=== PATIENT | male | born 1985 | race Caucasian/White ===

== ENCOUNTER 2016-06-06 20:13 | Emergency (ER) | payer OTHER ==
[~2016-06-06] VITALS: Ht 182.9 cm; Wt 90.1 kg
[~2016-06-06 20:13] MED LIST: LIBRIUM25 MG PO
[2016-06-06 23:23] LABS: HEMATOCRIT 40.7 % (38.0-50.0); MCH 29.1 PG (29.0-34.0); MCHC 35.6 G/DL (30.0-36.0); MCV 81.6 FL (86-99); MEAN PLAT.VOLUME 10.3 uM^3 (9.0-12.4); PLATELET COUNT 268 K/uL (156-360); RBC DIS.WIDTH-CV 12.9 % (11.8-14.6); RBC DIS.WIDTH-SD 37.4 % (39-53); RED BLOOD COUNT 4.99 M/uL (4.00-5.50); WHITE BLOOD COUNT 6.4 K/uL (4.1-10.2)
[2016-06-06 23:35] LABS: CHLORIDE 108 mEq/L (99-109); POTASSIUM 4.2 mEq/L (3.7-5.4); SODIUM 143 mEq/L (136-147)
[2016-06-06 23:37] LABS: GLUCOSE 86 mg/dL (70-99)
[2016-06-06 23:38] LABS: ANION GAP 15 MEQ/L (2-14)
[2016-06-06 23:40] LABS: SERUM ETHYL ALCOHOL 204 mg/dL
[2016-06-06 23:41] LABS: GFR ESTIMATE (CALCULATED) > 59 mL/min/
[2016-06-06 23:42] LABS: UREA NITROGEN (BUN) 13 mg/dL (9-23)
[2016-06-07] MEDS ORDERED: LIBRIUM25 MG PO (05:24)
[2016-06-07] MEDS ORDERED: THIAMINE HCL100 MG PO (05:24)
[2016-06-07 06:17] VITALS: BP 117/85
== END 2016-06-07 06:31 | disposition home or self-care (01) ==
LOC: EME → EDBD 20:13 → EME 20:13
PROVIDERS: Emergency Medicine
DX: S50.01XA Contusion of right elbow, initial encounter (principal); W22.8XXA Striking against or struck by other objects, initial encounter; Y92.810 Car as the place of occurrence of the external cause; F10.239 Alcohol dependence with withdrawal, unspecified; F10.229 Alcohol dependence with intoxication, unspecified; F33.8 Other recurrent depressive disorders; Z63.0 Problems in relationship with spouse or partner; Y90.7 Blood alcohol level of 200-239 mg/100 ml; F17.200 Nicotine dependence, unspecified, uncomplicated
CPT/HCPCS: 73080; 80048; 81003; 85027; 90837; 99281; 99284; G0480

== ENCOUNTER 2017-01-18 17:00 | Inpatient (IN) | payer OTHER ==
[~2017-01-18] VITALS: Ht 182.9 cm; Wt 80.0 kg
[~2017-01-18 17:00] MED LIST changes: +THIAMINE HCL100 MG PO
[2017-01-18 18:46] LABS: ADD MEDTOX COMMENT Y; AMPHETAMINE NEGATIVE (500 ng/mL); BARBITURATES NEGATIVE (200 ng/mL); BENZODIAZEPINES NEGATIVE (150 ng/mL); COCAINE PRESUMPTIVE POSITIVE (150 ng/mL); INTERNAL CONTROLS VALID? YES; METHADONE NEGATIVE (200 ng/mL); METHAMPHETAMINE NEGATIVE (500 ng/mL); OPIATES (MORPHINE) NEGATIVE (100 ng/mL); OXYCODONE NEGATIVE (100 ng/mL); PHENCYCLIDINE NEGATIVE (25 ng/mL); PROPOXYPHENE NEGATIVE (300 ng/mL); THC CANNABINOIDS PRESUMPTIVE POSITIVE (50 ng/mL); TRICYCLIC ANTIDEPRESSANTS NEGATIVE (300 ng/mL)
[2017-01-18 18:50] LABS: EOSINOPHIL (%) 1.6 % (0-5); EOSINOPHIL COUNT 0.1 K/uL (0-0.3); HEMATOCRIT 46.1 % (38.0-50.0); IMMATURE GRANULOCYTE (%) 0.3 % (0.0-0.7); INSTRUMENT ABS NEUTROPHIL CT 3.8 K/uL; LYMPHOCYTE COUNT 1.9 K/uL (1.0-2.8); MCH 28.3 PG (29.0-34.0); MCHC 34.3 G/DL (30.0-36.0); MCV 82.5 FL (86-99); MEAN PLAT.VOLUME 9.5 uM^3 (9.0-12.4); MONOCYTE (%) 7.1 % (3-12); MONOCYTE COUNT 0.4 K/uL (0-0.8); NEUTROPHIL COUNT 3.8 K/uL (1.8-6.4); PLATELET COUNT 328 K/uL (156-360); RBC DIS.WIDTH-CV 12.3 % (11.8-14.6); RBC DIS.WIDTH-SD 37.3 % (39-53); RED BLOOD COUNT 5.59 M/uL (4.00-5.50); WHITE BLOOD COUNT 6.2 K/uL (4.1-10.2)
[2017-01-18 19:00] LABS: CHLORIDE 108 mEq/L (99-109); POTASSIUM 3.6 mEq/L (3.7-5.4); SODIUM 144 mEq/L (136-147)
[2017-01-18 19:02] LABS: GLUCOSE 141 mg/dL (70-99)
[2017-01-18 19:03] LABS: ANION GAP 11 MEQ/L (2-14)
[2017-01-18 19:04] LABS: TOTAL BILIRUBIN 0.6 mg/dL (0.0-1.0)
[2017-01-18 19:05] LABS: SERUM ETHYL ALCOHOL 267 mg/dL
[2017-01-18 19:06] LABS: ALKALINE PHOSPHATASE 91 IU/L (3-129); GFR ESTIMATE (CALCULATED) > 59 mL/min/
[2017-01-18 19:07] LABS: UREA NITROGEN (BUN) 10 mg/dL (9-23)
[2017-01-19] MEDS ORDERED: ZOLOFT50 MG PO (05:12)
[2017-01-19 05:25] VITALS: BP 141/90
[2017-01-19 07:51] VITALS: BP 141/85
[2017-01-19 13:26] VITALS: BP 138/95
[2017-01-19 15:44] VITALS: BP 134/85
[2017-01-20 07:50] VITALS: BP 146/82
[2017-01-20 15:35] VITALS: BP 146/94
[2017-01-21 07:54] VITALS: BP 132/89
[2017-01-21] MEDS ORDERED: ZOLOFT100 MG PO (09:01)
== END 2017-01-21 10:28 | disposition home or self-care (01) | DRG 881 ==
LOC: EME 17:00 → EDOF 01-19 04:39 → 1WEST 01-19 04:39 → ENRESERV 01-19 05:01 → 1WEST 01-19 05:22
PROVIDERS: Emergency Medicine
DX: F43.21 Adjustment disorder with depressed mood (principal); R45.851 Suicidal ideations; F10.24 Alcohol dependence with alcohol-induced mood disorder; F10.229 Alcohol dependence with intoxication, unspecified; Y90.8 Blood alcohol level of 240 mg/100 ml or more; F10.230 Alcohol dependence with withdrawal, uncomplicated; F11.20 Opioid dependence, uncomplicated; F14.10 Cocaine abuse, uncomplicated; F12.90 Cannabis use, unspecified, uncomplicated; Z82.49 Family history of ischemic heart disease and other diseases of the circulatory system; F17.210 Nicotine dependence, cigarettes, uncomplicated; Z83.3 Family history of diabetes mellitus
CPT/HCPCS: 70360; 71020; 80053; 84999; 85025; 90839; 97150 GO; 97165 GO; 99281; 99285; G0480

== ENCOUNTER 2017-05-21 20:08 | Inpatient (IN) | payer OTHER ==
[~2017-05-21] VITALS: Ht 182.9 cm; Wt 88.6 kg
[~2017-05-21 20:08] MED LIST changes: +ZOLOFT100 MG PO; +ZOLOFT50 MG PO
[2017-05-21 21:10] LABS: ALBUMIN 4.9 g/dL (3.2-4.8)
[2017-05-21 21:11] LABS: CHLORIDE 107 mEq/L (99-109); POTASSIUM 3.9 mEq/L (3.7-5.4); SODIUM 141 mEq/L (136-147)
[2017-05-21 21:13] LABS: GLUCOSE 102 mg/dL (70-99); TOTAL PROTEIN 8.1 g/dL (6.4-8.3)
[2017-05-21 21:15] LABS: TOTAL BILIRUBIN 0.3 mg/dL (0.0-1.0)
[2017-05-21 21:16] LABS: ALKALINE PHOSPHATASE 93 IU/L (3-129); SERUM ETHYL ALCOHOL 269 mg/dL
[2017-05-21 21:16] LABS: APPEARANCE CLEAR ((CLEAR)); BILIRUBIN NEGATIVE; BLOOD NEGATIVE; COLOR STRAW ((YELLOW)); GLUCOSE (STRIP) NEGATIVE; KETONES NEGATIVE; LEUKOCYTES NEGATIVE; NITRITE NEGATIVE; PROTEIN (STRIP) NEGATIVE; SPECIFIC GRAVITY 1.005 (1.000-1.030); UCUL ADDED? NO; UROBILINOGEN 0.2 MG/DL (0.2-1.0)
[2017-05-21 21:17] LABS: GFR ESTIMATE (CALCULATED) > 59 mL/min/ (58.99-99999)
[2017-05-21 21:18] LABS: AST (GOT) 24 IU/L (2-34); UREA NITROGEN (BUN) 12 mg/dL (9-23)
[2017-05-21 21:20] LABS: ALT (GPT) 18 IU/L (3-49)
[2017-05-21 21:20] LABS: HEMATOCRIT 45.5 % (38.0-50.0); HEMOGLOBIN 16.4 G/DL (12.5-16.6); MCH 28.7 PG (29.0-34.0); MCV 79.5 FL (86-99); PLATELET COUNT 273 K/uL (156-360); RBC DIS.WIDTH-CV 12.2 % (11.8-14.6); RBC DIS.WIDTH-SD 34.9 % (39-53); RED BLOOD COUNT 5.72 M/uL (4.00-5.50)
[2017-05-21 21:25] LABS: AMPHETAMINE NEGATIVE (500 ng/mL); BARBITURATES NEGATIVE (200 ng/mL); BENZODIAZEPINES NEGATIVE (150 ng/mL); BUPRENORPHINE NEGATIVE (10 ng/mL); COCAINE NEGATIVE (150 ng/mL); METHADONE NEGATIVE (200 ng/mL); METHAMPHETAMINE NEGATIVE (500 ng/mL); OPIATES (MORPHINE) NEGATIVE (100 ng/mL); OXYCODONE NEGATIVE (100 ng/mL); PHENCYCLIDINE NEGATIVE (25 ng/mL); PROPOXYPHENE NEGATIVE (300 ng/mL); THC CANNABINOIDS NEGATIVE (50 ng/mL); TRICYCLIC ANTIDEPRESSANTS NEGATIVE (300 ng/mL)
[2017-05-22 05:28] VITALS: BP 121/71
[2017-05-22 07:40] VITALS: BP 133/67
[2017-05-22 15:36] VITALS: BP 116/70
[2017-05-23 07:41] VITALS: BP 125/82
[2017-05-23] MEDS ORDERED: ZOLOFT100 MG PO (09:47)
[2017-05-23] MEDS ORDERED: VISTARIL25 MG PO (09:48)
== END 2017-05-23 11:29 | disposition home or self-care (01) | DRG 881 ==
LOC: EME → EDBD 20:08 → 1WEST 05-22 04:42 → EDOF 05-22 04:42 → 1WEST 05-22 04:42 → ENRESERV 05-22 04:56 → 1WEST 05-22 05:22
PROVIDERS: Emergency Medicine
DX: F32.9 Major depressive disorder, single episode, unspecified (principal); R45.851 Suicidal ideations; F19.94 Other psychoactive substance use, unspecified with psychoactive substance-induced mood disorder; F10.229 Alcohol dependence with intoxication, unspecified; Y90.8 Blood alcohol level of 240 mg/100 ml or more; F17.200 Nicotine dependence, unspecified, uncomplicated; Z79.899 Other long term (current) drug therapy; F41.9 Anxiety disorder, unspecified
CPT/HCPCS: 80053; 81003; 85027; 90837; 97150 GO; 97165 GO; 99281; 99285; G0480

== ENCOUNTER 2017-06-21 01:00 | Emergency (ER) | payer OTHER ==
[~2017-06-21] VITALS: Ht 182.9 cm; Wt 84.7 kg
[~2017-06-21 01:00] MED LIST changes: +VISTARIL25 MG PO
[2017-06-21 02:18] LABS: AMPHETAMINE NEGATIVE (500 ng/mL); BARBITURATES NEGATIVE (200 ng/mL); BENZODIAZEPINES NEGATIVE (150 ng/mL); BUPRENORPHINE NEGATIVE (10 ng/mL); COCAINE PRESUMPTIVE POSITIVE (150 ng/mL); METHADONE NEGATIVE (200 ng/mL); METHAMPHETAMINE NEGATIVE (500 ng/mL); OPIATES (MORPHINE) NEGATIVE (100 ng/mL); OXYCODONE NEGATIVE (100 ng/mL); PHENCYCLIDINE NEGATIVE (25 ng/mL); PROPOXYPHENE NEGATIVE (300 ng/mL); THC CANNABINOIDS PRESUMPTIVE POSITIVE (50 ng/mL); TRICYCLIC ANTIDEPRESSANTS NEGATIVE (300 ng/mL)
[2017-06-21 02:37] LABS: BASOPHIL (%) 0.4 % (0-1); EOSINOPHIL (%) 0.4 % (0-5); HEMATOCRIT 46.7 % (38.0-50.0); HEMOGLOBIN 16.1 G/DL (12.5-16.6); IMMATURE GRANULOCYTE (%) 0.3 % (0.0-0.7); LYMPHOCYTE (%) 17.7 % (15-42); LYMPHOCYTE COUNT 1.6 K/uL (1.0-2.8); MCH 28.4 PG (29.0-34.0); MCHC 34.5 G/DL (30.0-36.0); MCV 82.4 FL (86-99); MONOCYTE (%) 5.6 % (3-12); MONOCYTE COUNT 0.5 K/uL (0-0.8); NEUTROPHIL (%) 75.6 % (45-76); NEUTROPHIL COUNT 6.9 K/uL (1.8-6.4); PLATELET COUNT 313 K/uL (156-360); RBC DIS.WIDTH-CV 13.8 % (11.8-14.6); RBC DIS.WIDTH-SD 41.1 % (39-53); RED BLOOD COUNT 5.67 M/uL (4.00-5.50); WHITE BLOOD COUNT 9.1 K/uL (4.1-10.2)
[2017-06-21 02:48] LABS: ALBUMIN 4.8 g/dL (3.2-4.8); CHLORIDE 104 mEq/L (99-109); POTASSIUM 4.3 mEq/L (3.7-5.4); SODIUM 140 mEq/L (136-147)
[2017-06-21 02:49] LABS: MAGNESIUM 2.6 mg/dL (1.3-2.7)
[2017-06-21 02:51] LABS: GLUCOSE 88 mg/dL (70-99); TOTAL PROTEIN 8.4 g/dL (6.4-8.3)
[2017-06-21 02:52] LABS: TOTAL BILIRUBIN 0.9 mg/dL (0.0-1.0)
[2017-06-21 02:54] LABS: ALKALINE PHOSPHATASE 129 IU/L (3-129); CREATININE 0.9 mg/dL (0.6-1.3); GFR ESTIMATE (CALCULATED) > 59 mL/min/ (58.99-99999); SERUM ETHYL ALCOHOL 173 mg/dL
[2017-06-21 02:55] LABS: UREA NITROGEN (BUN) 12 mg/dL (9-23)
[2017-06-21 02:56] LABS: AST (GOT) 39 IU/L (2-34)
[2017-06-21 02:57] LABS: ALT (GPT) 34 IU/L (3-49)
[2017-06-21] MEDS ORDERED: ZOFRAN ODT4 MG PO (04:02)
[2017-06-21] MEDS ORDERED: LIBRIUM25 MG PO (04:03)
[2017-06-21 12:49] VITALS: BP 110/62
== END 2017-06-21 12:50 | disposition home or self-care (01) ==
LOC: EME 01:00 → EDBD 01:00 → EME 12:50
PROVIDERS: Emergency Medicine
PROC: 05HQ33Z Insertion of Infusion Device into Left External Jugular Vein, Percutaneous Approach (ICD-10-PCS; principal; 2017-06-21)
DX: F10.129 Alcohol abuse with intoxication, unspecified (principal); R45.851 Suicidal ideations; F33.2 Major depressive disorder, recurrent severe without psychotic features; F41.9 Anxiety disorder, unspecified; F12.90 Cannabis use, unspecified, uncomplicated; F14.90 Cocaine use, unspecified, uncomplicated; R53.83 Other fatigue; R11.2 Nausea with vomiting, unspecified; M79.1 Myalgia; R00.0 Tachycardia, unspecified; Y90.6 Blood alcohol level of 120-199 mg/100 ml; F17.200 Nicotine dependence, unspecified, uncomplicated
CPT/HCPCS: 71045; 80053; 83735; 84999; 85025; 90839; 99281; 99285; G0480; J2405; J7040